=== PATIENT | male | born 1970 | race Caucasian/White ===

== ENCOUNTER 2020-07-23 18:43 | Emergency (ER) | payer BC, SELFPAY ==
[2020-07-23 18:50] VITALS: BP 189/106; PULSE 89; RESP 18; TEMP 36.2; O2SAT 99
--- NOTE | 2020-07-23 19:29 | ED.LOWEXIN ---
HPI - Extremity Injury (Lower) General Chief Complaint: Extremity Injury, Lower Stated Complaint: leg issue from [facility] Time Seen by Provider: 07/23/20 18:58 History of Present Illness HPI Narrative: Patient is a 49-year-old male who presents to the ER with a weeping wound to his left lower extremity. Patient reports he has had chronic changes to his lower extremities over the last decade as he has not gone to see a physician. He did establish care with a PCP today who referred him here for further evaluation. Reports over the last week he started weeping from the wound and has developed edema to the leg. No calf pain but he does have tenderness with palpation over the edema. It slightly red in color. There is no fevers or chills or sweats. No chest pain or shortness of breath. Has not had this issue previously. Denies any medical history but again has not seen a doctor in a decade. Related Data Allergies Allergy/AdvReac Type Severity Reaction Status Date / Time No Known Allergies Allergy Verified 07/23/20 21:47 Review of Systems Review of Systems: All systems reviewed & are unremarkable except as noted in HPI and below Constitutional: Constitutional: Denies chills and Denies fever(s) Cardiovascular: Cardiovascular: Denies chest pain and Denies radiating jaw, neck or arm pain Respiratory: Respiratory: Denies cough and Denies dyspnea Musculoskeletal: Comments: Left lower extremity edema. Integumentary/Breasts: Comments: Venous stasis changes bilateral lower extremity dermatitis with weeping from the left side. [facility] Past Medical History Medical History (Updated 07/23/20 @ 21:47 by Alonso Rodriguez MD) No pertinent past medical history Surgical History Surgical History (Updated 07/23/20 @ 19:31 by Alonso Rodriguez MD) No pertinent past surgical history Social History Social History (Updated 07/23/20 @ 19:31 by Alonso Rodriguez MD) Smoking status: Former smoker Exam Narrative: Exam Narrative: GENERAL: Well-appearing, obese, and in no acute distress. HEAD: Normocephalic, atraumatic. CHEST: Clear to auscultation. No respiratory distress. HEART: Regular rate and rhythm. Normal peripheral pulses. EXTREMITIES: Normal range of motion. Bilateral lower extremities with venous stasis changes. Left lower extremity with weeping anterior aspect with 2+ pitting edema proximally to this up to the knee. Slight erythema but no warmth. No purulence. SKIN: Warm, dry. Venous stasis changes as well as NEURO: Alert and oriented x3. Course Course Emergency Course: Will start on Keflex for potential early infection. Patient arranged for ultrasound tomorrow to rule out DVT. Vital Signs Vital signs: Vital Signs Temperature 97.1 F L 07/23/20 18:50 Pulse Rate 89 07/23/20 18:50 Respiratory Rate 18 07/23/20 18:50 Blood Pressure 189/106 H 07/23/20 18:50 Pulse Oximetry 99 07/23/20 18:50 Temperature 97.1 F L 07/23/20 18:50 Pulse Rate 89 07/23/20 18:50 Respiratory Rate 18 07/23/20 18:50 Blood Pressure 189/106 H 07/23/20 18:50 Pulse Oximetry 99 07/23/20 18:50 MDM - Extremity Injury (Lower) Lab Data Result diagrams: 07/23/20 20:44 07/23/20 20:44 Labs: Lab Results 07/23/20 07/23/20 07/23/20 Range/Units 20:44 20:44 20:44 WBC 8.0 (4.5-10.0) K/mm3 RBC 4.92 (4.6-6.20) M/mm3 Hgb 14.5 (14.0-18.0) g/dL Hct 43.2 (42.0-52.0) % MCV 87.8 (80-100) fl MCH 29.5 (26-34) pg MCHC 33.6 (32-36) g/dl RDW 13.6 (11.5-14.5) % Plt Count 255 (150-375) k/mm3 MPV 9.2 (7.4-10.4) fl Immature Gran % (Auto) 0.5 (0-0.5) % Neut % (Auto) 61.8 (45.5-73.1) % Lymph % (Auto) 26.5 (18.3-44.2) % Edwards % (Auto) 10.3 H (2.6-8.5) % Eos % (Auto) 0.5 (0-4.4) % Baso % (Auto) 0.4 (0.2-1.2) % Lymph # (Auto) 2.11 (0.9-3.2) K/mm3 Edwards # (Auto) 0.8 H (0.1-0.6) K/mm3 Eos # (Auto) 0.0 (0-0.3
[2020-07-23 20:53] LABS: Basophils Percent Auto 0.4 % (0.2-1.2); Eosinophils Percent Auto 0.5 % (0-4.4); Hematocrit 43.2 % (42.0-52.0); Hemoglobin 14.5 g/dL (14.0-18.0); Immature Granulocyte Absolute 0.04 K/mm3 (0.00-0.031); Immature Granulocyte Percent A 0.5 % (0-0.5); Lymphocytes Absolute Auto 2.11 K/mm3 (0.9-3.2); Lymphocytes Percent Auto 26.5 % (18.3-44.2); Mean Corpuscular HGB Conc 33.6 g/dl (32-36); Mean Corpuscular Hemoglobin 29.5 pg (26-34); Mean Corpuscular Volume 87.8 fl (80-100); Mean Platelet Volume 9.2 fl (7.4-10.4); Monocytes Absolute Auto 0.8 K/mm3 (0.1-0.6); Monocytes Percent Auto 10.3 % (2.6-8.5); Neutrophils Absolute Auto 4.9 K/mm3 (1.3-6.7); Neutrophils Percent Auto 61.8 % (45.5-73.1); Platelet Count Result 255 k/mm3 (150-375); Red Blood Count 4.92 M/mm3 (4.6-6.20); Red Cell Distribution Width 13.6 % (11.5-14.5)
[2020-07-23 21:06] LABS: INR 1.1; Prothrombin Time 13.4 Seconds (11.1-14.7)
[2020-07-23 21:07] LABS: Anion Gap 8 mmol/L (8-16); Blood Urea Nitrogen 12 mg/dL (9-20); Calcium 9.6 mg/dL (8.4-10.2); Carbon Dioxide 28 mmol/L (22-30); Chloride 101 mmol/L (98-107); Estimated CRCL calculation 122 ml/min; Estimated Glomerular Filt Rate > 60; Glucose 110 mg/dL (75-110); Partial Thromboplastin Time 27.5 SECONDS (22.3-36.8); Potassium 4.1 mmol/L (3.4-5.0); Sodium 137 mmol/L (137-145)
[2020-07-23 22:04] VITALS: BP 169/102; PULSE 81; RESP 18; O2SAT 96
== END 2020-07-23 22:07 | disposition home or self-care (01) ==
PROVIDERS: Emergency Provider Emergency Medicine; PCP Nurse Practitioner Family
DX: R60.0 Localized edema (principal); L03.116 Cellulitis of left lower limb; Z87.891 Personal history of nicotine dependence
CPT/HCPCS: 36415; 80048; 85025; 85610; 85730; 99283

== ENCOUNTER 2020-07-24 07:55 | Outpatient (CLI) | payer BC, SELFPAY ==
--- NOTE | ~2020-07-24 | US_ITS ---
EXAMINATION: US venous doppler [facility] DATE: 07/24/2020 08:28 INDICATION: Left lower limb swelling TECHNIQUE: Velazquez scale images without and with compression and Doppler images of the left lower extrem ity veins were obtained. COMPARISON: None FINDINGS: The left common femoral vein, profunda femoral vein, femoral vein, popliteal vein, peroneal trunk, posterior tibial veins, and greater saphenous vein are patent. IMPRESSION: 1. Patent left lower extremity veins. No evidence of deep venous thrombosis. Reviewed, dictated and finalized at location A.
== END 2020-07-24 07:56 | disposition home or self-care (01) ==
LOC: ANHIMG 07:58
PROVIDERS: PCP Nurse Practitioner Family; Visit Provider Internal Medicine
DX: R60.0 Localized edema (principal)
CPT/HCPCS: 93971

== ENCOUNTER 2022-06-02 01:46 | Day surgery (SDC) | payer BC, SELFPAY ==
[2022-05-23 15:14] VITALS: BMI 52.0
--- NOTE | 2022-06-01 20:47 | PM.HPGS ---
History of Present Illness History of Present Illness Consent: Risks, benefits, and alternatives have been discussed and questions answered. Patient agrees to proceed with procedure. Chief complaint: positive cologuard Narrative: Milo Joshua is a 51 year old male referred for colon caner screening, positive cologuard Review of Systems Review of Systems: All systems reviewed & are unremarkable except as noted in HPI and below PMFSH Past Medical History Medical History No pertinent past medical history Surgical History Surgical History No pertinent past surgical history Social History Social History Smoking status: Former smoker Substance use type: does not use Living arrangements: with family Spiritual care concerns: No Meds Home Medications and Allergies Home Medications Medication Instructions Recorded Confirmed Type atorvastatin 10 mg tablet 10 mg PO DAILY 05/23/22 06/02/22 History losartan 25 mg tablet 25 mg PO DAILY 05/23/22 06/02/22 History metformin 500 mg tablet,extended 500 mg PO DAILY 05/23/22 06/02/22 History release 24 hr Allergies Allergy/AdvReac Type Severity Reaction Status Date / Time No Known Allergies Allergy Verified 06/02/22 09:48 Exam Const: Nutritional Appearance: obese Resp: Auscultation: clear to auscultation bilaterally Cardio: Rate: regular rate Rhythm: regular rhythm GI: Inspection: obesity GI Palp: Yes Soft to palpation and No Tenderness to palpation present (GI) Assessment and Plan Assessment and plan (1) Colon cancer screening: Code(s): Z12.11 - Encounter for screening for malignant neoplasm of colon Status: Acute Assessment and Plan: Colonoscopy with possible biopsy or polypectomy or cautery or injection of substances.
[2022-06-02 09:42] VITALS: BP 149/79; PULSE 77; RESP 20; TEMP 36.2; O2SAT 97; BMI 51.7
[2022-06-02 10:10] LABS: Glucose Point of Care 143 mg/dl (65-105)
[2022-06-02] MEDS: LACTATED RINGERS 1,000 ML 150 ML IV CONT (10:12)
[2022-06-02 11:17] VITALS: BP 96/50; PULSE 76; RESP 19; O2SAT 94
[2022-06-02 11:27] VITALS: BP 121/69; PULSE 74; RESP 20; O2SAT 96
[2022-06-02 11:37] VITALS: BP 145/86; PULSE 73; RESP 20; O2SAT 96
== END 2022-06-02 11:46 | disposition home or self-care (01) ==
PROVIDERS: PCP Nurse Practitioner Family; Visit Provider Internal Medicine Gastroenterology
PROC: 0DJD8ZZ Inspection of Lower Intestinal Tract, Via Natural or Artificial Opening Endoscopic (ICD-10-PCS; CPT 45378; principal; 2022-06-02 10:45)
DX: R19.5 Other fecal abnormalities (principal); D12.5 Benign neoplasm of sigmoid colon; Z79.899 Other long term (current) drug therapy
CPT/HCPCS: 45385; 82948; 88305; J2704; J7120

== ENCOUNTER 2023-12-14 13:23 | Outpatient (CLI) | payer OTHER, SELFPAY ==
--- NOTE | 2023-12-14 13:38 | ECG_ITS ---
Measurements Intervals [place] Rate: 79 P: 74 [place]: 137 QRS: 6 QRSD: 102 T: 28 QT: 342 QTc: 393 Interpretive Statements SINUS RHYTHM DELAYED PRECORDIAL R/S TRANSITION BASELINE ARTIFACT- I, II, III, AVR, AVL, AVF, V1-V6 BORDERLINE ECG NO PREVIOUS ECG AVAILABLE FOR COMPARISON Electronically Signed On 12-14-2023 13:51:37 CDT by Naveed Cade D.O.
[2023-12-14 14:39] LABS: Anion Gap 6 mmol/L (8-16); Blood Urea Nitrogen 15 mg/dL (9-20); Carbon Dioxide 27 mmol/L (22-30); Chloride 103 mmol/L (98-107); Estimated Glomerular Filt Rate > 60; Glucose 201 mg/dL (65-110); Potassium 4.2 mmol/L (3.4-5.0); Sodium 136 mmol/L (137-145)
== END 2023-12-14 13:24 | disposition home or self-care (01) ==
LOC: ANHSURGERY 13:28
PROVIDERS: Anesthesiology; PCP Nurse Practitioner; Visit Provider Dentist
DX: E11.9 Type 2 diabetes mellitus without complications (principal); Z01.818 Encounter for other preprocedural examination; R94.31 Abnormal electrocardiogram [ECG] [EKG]
CPT/HCPCS: 36415; 80048; 93005

== ENCOUNTER 2023-12-19 03:09 | Day surgery (SDC) | payer OTHER, SELFPAY ==
[2023-12-12 13:03] VITALS: BMI 52.4
--- NOTE | 2023-12-12 13:11 | PC.NURSE ---
Report to the Outpatient Waiting Room, entrance under the green pavilion located off [facility], at time 6:00 on date 12/19/23. Planned Procedure Time: 7:30. Time changes happen often and if your time is changed the preop area will call you the afternoon before. - You and your visitor will be asked to self-screen and do not enter if you have any COVID symptoms. - A mask is optional within the hospital at this time. Patients may have clear liquids (water, carbonated beverages, clear teas, apple juice) until 3 hours prior to surgery with a maximum of 20 ounces. - No food from midnight until time of surgery Take the following medications with a SIP of water the morning of surgery: NONE DO NOT STOP ANY OF YOUR OTHER PRESCRIPTION MEDICATIONS PRIOR TO SURGERY ?EXCEPT THE FOLLOWING Medications to discontinue per physician: N/A Date to take last dose: N/A Please no make-up, nail faroese, hairspray, perfume, deodorant, or body powder the day of surgery. No jewelry (including any body piercings) or valuables the day of surgery, leave them at home. Please take a shower or bath the night before, or the morning of, surgery with an antibacterial soap. Wear comfortable, loose fitting clothing. - Jewelry must be removed prior to entering the operating room. Rings and piercings that are not removed may be cut off. - The hospital will not accept responsibility for valuables. - Please leave all valuables, including medications, at home the day of surgery. If you are going home after surgery, a licensed tractor trailer moving van driver must drive you home. - NO public transportation without another adult if you receive anesthesia. - We recommend that an adult stay with you for 24 hours following discharge. - We also recommend that you do not drive, make important decision, drink alcoholic beverages, or take any drugs that were not prescribed by your health care provider for at least 24 hours after your discharge time. Follow any additional instructions given to you from your surgeon. If you or anyone in your household have experienced Covid symptoms in the past week, please notify your surgeon or the nurse liaison at the phone number below for possible testing. Telephone instructions given to PT - SID and asked if any additional questions and then verbalized understanding. Patient advised to call surgeon office or pre surgery nurse liaison [phone] if any additional questions.
[2023-12-19] VITALS (8 sets, daily range): BP systolic 118–166; BP diastolic 61–91; PULSE 73–90; RESP 16–20; TEMP 36.1–36.7; O2SAT 94–98
[2023-12-19] MEDS: LACTATED RINGERS 1,000 ML 30 ML IV CONT (06:58)
[2023-12-19 07:03] LABS: Glucose Point of Care 171 mg/dl (65-105)
--- NOTE | 2023-12-19 07:16 | WPDANESEPPF ---
Anes - Initial Pre Proc Eval Procedure: Operation Date: 12/19/23 07:30 Proposed Procedures p Extractions of Thirteen Teeth - Zackery Olsen DMD Date/Time: 12/19/23 07:16 Surgeon: Zackery Olsen DMD Pre Op Diagnosis: dental caries 6-13, 18,,,,29 Patient Data Age: 53 Gender: M Height: 1.73 m Weight: 148.6 kg Last Vital Signs Temp 97.0 F L 12/19/23 07:02 Pulse 77 12/19/23 07:02 Resp 20 12/19/23 07:02 BP 166/71 H 12/19/23 07:02 Pulse Ox 98 12/19/23 07:02 O2 Del Method Room Air 12/19/23 07:02 Allergies Allergy/AdvReac Type Severity Reaction Status Date / Time No Known Allergies Allergy Verified 12/19/23 06:21 Home Medications Medication Instructions Recorded Confirmed Type atorvastatin 10 mg tablet 10 mg PO DAILY 05/23/22 12/19/23 History losartan 25 mg tablet 25 mg PO DAILY 05/23/22 12/19/23 History metformin 500 mg tablet,extended 500 mg PO DAILY 05/23/22 12/19/23 History release 24 hr risankizumab-rzaa 150 mg/mL 150 mg subcut ONCE 12/12/23 12/19/23 History subcutaneous pen injector (Skyrizi) Laboratory Tests 12/19/23 06:58 POC Capillary Glucose 171 H mg/dl (65-105) Patient hx anesthesia problems: none Family hx anesthesia problems: none Results Review: All pre-operative results and documents have been reviewed as part of the pre-operative evaluation. [facility] Past Medical History Medical History No pertinent past medical history Surgical History Surgical History No pertinent past surgical history Social History Social History Smoking packs per day: 1 Smoking cigarettes per day: 20.0 Years smoked: 35 Smoking pack-years: 35.00 Smoking status: Former smoker Tobacco type: cigarettes Smoking end date: 09/24/16 Alcohol intake: current Alcohol use details: 1/MONTH Substance use: never Substance use type: does not use Living arrangements: alone Spiritual care concerns: No Anes - Eval Final PreProcedure Day of Procedure 12/19/23 07:16 Patient weight: super morbidly obese Heart: regular rate and rhythm Lungs: clear to auscultation Airway: Mallampati scale class III Neurological: alert and oriented Last oral intake: >/= 8 hours ASA classification: III Emergent: no Anesthetic plan: proceed Anesthesia type and monitoring: general ETT (have glidescope in the room) and standard monitoring Results Review: All pre-operative results and documents have been reviewed as part of the pre-operative evaluation. Informed Consent: The patient's anesthetic plan and its attendant risks and benefits were discussed with the patient/family/POA. Questions were solicited and answers provided to the satisfaction of the patient/family/POA.
--- NOTE | 2023-12-19 07:36 | WPDHPUPDATE1 ---
History and Physical Update Update Date/Time: 12/19/23 07:36 History and Physical has been reviewed, including an updated exam of the patient. There are NO changes in the patient's condition. Risks, benefits, and alternatives have been discussed and questions answered. Patient agrees to proceed with procedure.
--- NOTE | 2023-12-19 07:37 | PM.IMHP ---
H&P: HPI History of Present Illness Date/Time: 12/19/23 07:37 Chief Complaint: bad teeth PMFSH Past Medical History Medical History No pertinent past medical history Surgical History Surgical History No pertinent past surgical history Social History Social History Smoking packs per day: 1 Smoking cigarettes per day: 20.0 Years smoked: 35 Smoking pack-years: 35.00 Smoking status: Former smoker Tobacco type: cigarettes Smoking end date: 09/24/16 Alcohol intake: current Alcohol use details: 1/MONTH Substance use: never Substance use type: does not use Living arrangements: alone Spiritual care concerns: No Meds Home Medications and Allergies Home Medications Medication Instructions Recorded Confirmed Type atorvastatin 10 mg tablet 10 mg PO DAILY 05/23/22 12/19/23 History losartan 25 mg tablet 25 mg PO DAILY 05/23/22 12/19/23 History metformin 500 mg tablet,extended 500 mg PO DAILY 05/23/22 12/19/23 History release 24 hr risankizumab-rzaa 150 mg/mL 150 mg subcut ONCE 12/12/23 12/19/23 History subcutaneous pen injector (Skyrizi) Allergies Allergy/AdvReac Type Severity Reaction Status Date / Time No Known Allergies Allergy Verified 12/19/23 06:21 Vital Signs Vital Signs - 24 hr 12/19/23 07:02 Temperature 36.1 C L Pulse Rate 77 Respiratory Rate 20 Blood Pressure 166/71 H Pulse Oximetry 98 Oxygen Delivery Room Air Assessment and Plan Assessment and plan (1) Non-restorable tooth: Code(s): K08.89 - Other specified disorders of teeth and supporting structures Status: Acute Plan removal of all teeth
[2023-12-19] MEDS: OXYMETAZOLINE HCL 0.05% NAS 15 ML BTL (*BKC) 1 SPRAY NASAL (08:03)
[2023-12-19] MEDS: LIDOCAINE 2%-EPI (FOR DENTAL BLOCK) 1.7 ML CARTRIDGE 6.8 ML INFILTRATE (08:04)
--- NOTE | 2023-12-19 08:26 | W.PM.PROC2 ---
Procedure Note - Detailed Date of Procedure 12/19/23 Pre-op Diagnosis dental caries 6-13, 18,22,24,27,29 Post-op Diagnosis Same Procedure Performed removal of all teeth Surgeon Zackery Olsen, JAZMIN Anesthesia General Findings no unusual Description of Procedure Patient encountered in OR under care of anesthesia service who induced a general anesthetic. draped in usual manner. oral cavity suctioned from of debris and throat pack placed. local anesthetic given. (6cc of 2% lidocaine with 1:100:000 epi). Sulcular incision made in maxilla, MPF elevated. all teeth removed with forceps. Alveoloplasty. Closed. Attention turned to the mandible where sulcular incision made and all teeth removed with forceps. Alveoloplasty. Closed. Dentures inserted. Care of the patient returned to anesthesia service.
[2023-12-19 08:34] LABS: Glucose Point of Care 170 mg/dl (65-105)
== END 2023-12-19 10:03 | disposition home or self-care (01) ==
PROVIDERS: PCP Nurse Practitioner; Visit Provider Dentist
PROC: (CPT 41899; principal; 2023-12-19 07:30)
DX: K02.9 Dental caries, unspecified (principal); Z79.84 Long term (current) use of oral hypoglycemic drugs; Z87.891 Personal history of nicotine dependence; E66.01 Morbid (severe) obesity due to excess calories; Z68.42 Body mass index [BMI] 45.0-49.9, adult
CPT/HCPCS: 41899 ×13; 36415; 80048; 82948; 93005; A9270; J0330; J1100; J2250; J2405; J2704; J7120